=== PATIENT | male | born 1960 ===

== ENCOUNTER → 2024-02-26 | Outpatient (CLI) | payer OTHER, MEDICAID ==
[~2024-02-26] VITALS: Ht 175.3 cm; Wt 105.2 kg
== END | disposition home or self-care (01) ==
LOC: Rad HDHVI 08:06
PROVIDERS: ATTEND Internal Medicine Cardiovascular Disease
DX: I10 Essential (primary) hypertension (principal); E11.9 Type 2 diabetes mellitus without complications; E78.00 Pure hypercholesterolemia, unspecified; R00.2 Palpitations
CPT/HCPCS: 78452; 93017; 96374; A9500